=== PATIENT | female | born 1930 | race Caucasian/White ===

== ENCOUNTER → 2016-11-15 | Outpatient (CLI) | payer MEDICARE, BC | LOC: RAD 08:53 | DX: Z13.820 Encounter for screening for osteoporosis (principal); M81.0 Age-related osteoporosis without current pathological fracture; M85.852 Other specified disorders of bone density and structure, left thigh; M85.832 Other specified disorders of bone density and structure, left forearm ==

== ENCOUNTER → 2019-07-27 | Outpatient (CLI) | payer MEDICARE, BC | LOC: RAD 11:51 | DX: K43.9 Ventral hernia without obstruction or gangrene (principal); K40.90 Unilateral inguinal hernia, without obstruction or gangrene, not specified as recurrent ==

== ENCOUNTER → 2019-10-26 | Outpatient (CLI) | payer MEDICARE, BC | LOC: VAS 11:58 | DX: M79.606 Pain in leg, unspecified (principal) ==

== ENCOUNTER 2021-01-15 13:36 | Emergency (ER) | payer MEDICARE, BC ==
[2021-01-15] MEDS ORDERED: AMLODIPINE BESYL5 MG PO (13:42)
[2021-01-15] MEDS ORDERED: ASPIRIN 81M81 MG/TA2 PO (13:53)
[2021-01-15] MEDS ORDERED: SYNTHROID RP0.1 MG PO (13:54)
[2021-01-15] MEDS ORDERED: GABAPENTIN100 MG PO (13:54)
[2021-01-15] MEDS ORDERED: MOBIC7.5 MG PO (13:55)
[2021-01-15] MEDS ORDERED: GLUCOPHAGE500 MG/TAB PO (13:55)
[2021-01-15] MEDS ORDERED: LOPRESSOR 225 MG/TAB PO (13:56)
[2021-01-15 14:44] LABS: BASO # 0.04 (0.02-0.10); EOS # 0.09 (0.04-0.40); HEMATOCRIT 43.3 % (37.0-47.0); LYMPH# 0.91 (1.50-4.00); MEAN CELL VOLUME 89 fl (78-100); MEAN CORPUSCULAR HEMOGLOBIN 29 pg (27-31); MEAN CORPUSCULAR HGB CONC 32 g/dL (33-37); MEAN PLATELET VOLUME 10.9 fl (7.4-10.4); MONO # 1.37 (0.20-0.80); NEU # 6.92 (1.40-6.50); PLATELET COUNT 235 K/mm3 (130-400); RED BLOOD COUNT 4.85 M/mm3 (4.10-5.30); WHITE BLOOD COUNT 9.4 K/mm3 (4.8-10.8)
[2021-01-15 14:53] LABS: ALBUMIN 3.8 g/dL (3.4-4.8); POTASSIUM 3.9 mmol/L (3.5-5.1)
[2021-01-15 14:55] LABS: CALCIUM 10.1 mg/dL (8.3-10.5)
[2021-01-15 14:56] LABS: TOTAL PROTEIN 7.2 g/dL (6.2-8.1)
[2021-01-15 14:58] LABS: TOTAL BILIRUBIN 1.2 mg/dL (0.2-1.2)
[2021-01-15 15:53] LABS: URINE APPEARANCE CLOUDY; URINE COLOR YELLOW; URINE PROTEIN(semi-quant) NEGATIVE (NEGATIVE)
[2021-01-15 15:54] LABS: URINE BILIRUBIN 1+ (NEGATIVE); URINE BLOOD TRACE (NEGATIVE); URINE KETONE NEGATIVE (NEGATIVE); URINE LEUKOCYTE ESTERASE TRACE (NEGATIVE); URINE NITRATE NEGATIVE (NEGATIVE); URINE UROBILINOGEN 1 mg/dL (NORMAL)
[2021-01-15] MEDS ORDERED: PREDNISONE20 M1 PO (17:16)
[2021-01-15] MEDS ORDERED: ZITHROMAX 250M250 MG PO (17:16)
[2021-01-15] MEDS ORDERED: GUAIFEN-CODEIN118 ML PO (17:16)
[2021-01-15 18:08] VITALS: BP 141/73
== END 2021-01-15 17:48 | disposition home or self-care (01) ==
LOC: ED 13:36
PROVIDERS: Family Medicine
DX: J98.01 Acute bronchospasm (principal); I10 Essential (primary) hypertension; E11.9 Type 2 diabetes mellitus without complications; E03.9 Hypothyroidism, unspecified; Z20.822 Contact with and (suspected) exposure to COVID-19; Z79.899 Other long term (current) drug therapy; Z79.890 Hormone replacement therapy; Z79.84 Long term (current) use of oral hypoglycemic drugs